=== PATIENT | male | born 1950 | race Caucasian/White ===

== ENCOUNTER 2022-10-12 06:58 | Day surgery (SDC) | payer MEDICARE, OTHER ==
[~2022-10-12] VITALS: Ht 167.7 cm; Wt 57.6 kg
[2022-10-12] VITALS (11 sets, daily range): BP systolic 123–168; BP diastolic 78–106; PULSE 62–96; TEMP 98.7
[2022-10-12 07:52] LABS: HEMOGLOBIN 12.7 g/dl (13.5-18.0); MEAN CELL VOLUME 102 fl (80.0-100.0); MEAN CORPUSCULAR HEMOGLOBIN 35 pg (27-31); MEAN CORPUSCULAR HGB CONC 34 g/dl (33.0-37.0); PLATELET COUNT 223 K/mm3 (130-400); RED BLOOD COUNT 3.63 M/mm3 (4.20-5.60); REDCELL DISTRIBUTION WIDTH-CV 13.5 % (11.5-14.5)
[2022-10-12 08:06] LABS: PARTIAL THROMBOPLASTIN TIME 35.4 SECONDS (26.0-37.0)
[2022-10-12 08:10] LABS: CALCIUM 9.3 mg/dL (8.4-10.2); CREATININE, serum 1.14 mg/dL (0.72-1.25)
[2022-10-12] MEDS ORDERED: NEURONTIN300 MG/CAP PO (08:39)
[2022-10-12] MEDS ORDERED: PLETAL 100MG T100 MG PO (08:40)
[2022-10-12] MEDS ORDERED: ELIQUIS 5MG PO (08:41)
[2022-10-12] MEDS ORDERED: PROTONIX 40MG T40 MG PO (08:42)
[2022-10-12] MEDS ORDERED: CELEXA 20MG20 MG/TAB PO (08:42)
[2022-10-12] MEDS ORDERED: PLAVIX 75MG TAB75 MG PO (08:43)
[2022-10-12] MEDS ORDERED: LIPITOR 40MG TA40 MG PO (08:43)
[2022-10-12] MEDS ORDERED: IRON TABLETS325 MG PO (08:46)
[2022-10-12] MEDS ORDERED: MELATONIN ER10 MG PO (08:47)
[2022-10-12] MEDS ORDERED: TYLENOL 500MG500 MG PO (08:48)
--- NOTE | 2022-10-12 09:30 | NUR ---
PLEASE SEE MERGE FOR DOCUMENTATION OF INTERVENTION, VITALS, MEDICATION ADMINISTRATION.
--- NOTE | 2022-10-12 10:32 | NUR ---
Pt returned from procedure,report from LILA Ashton.
[2022-10-12] MEDS ORDERED: IMDUR 60MG60 MG/TAB PO (11:22)
[2022-10-12] MEDS ORDERED: TOPROL XL 25MG25 MG PO (11:28)
--- NOTE | 2022-10-12 13:27 | NUR ---
All air removed from band in 2-3 ml incriments.No bleeding observed at site.Dressing applied of gauze and coban.Discharge instructions provided,pt verbalizes understanding.
--- NOTE | 2022-10-12 14:13 | NUR ---
Pt escorted out via wheelchair by this nurse.
== END 2022-10-12 14:22 ==
LOC: COL.CAR 06:58
PROVIDERS: Internal Medicine Cardiovascular Disease
DX: I25.10 Atherosclerotic heart disease of native coronary artery without angina pectoris (principal); I73.9 Peripheral vascular disease, unspecified; R94.39 Abnormal result of other cardiovascular function study; F17.210 Nicotine dependence, cigarettes, uncomplicated; Z79.01 Long term (current) use of anticoagulants; Z79.899 Other long term (current) drug therapy
CPT/HCPCS: J1644; J2250; J3010